=== PATIENT | male | born 1960 | race African-American/Black ===

== ENCOUNTER 2017-03-27 10:37 | Inpatient (IN) | payer OTHER ==
[~2017-03-27] VITALS: Ht 185.4 cm; Wt 90.7 kg
[2017-03-27] MEDS ORDERED: ASPIRIN 81MG TABLET PO STA (11:49)
[2017-03-27] MEDS ORDERED: ONDANSETRON HCL 4MG/2ML VIAL IV STA (11:49)
[2017-03-27 12:35] LABS: BASOPHILS % 0.4 % (0.0-2.0); EOSINOPHILS % 7.5 % (0.0-5.0); HEMATOCRIT. 41.4 % (42.0-52.0); HEMOGLOBIN. 13.4 g/dL (14.0-18.0); LYMPHOCYTES % 10.1 % (20.0-50.0); MEAN CORPUSCULAR HEMOGLOBIN 29.8 pg (28.0-32.0); MEAN CORPUSCULAR VOLUME 92.3 fL (80.0-94.0); MONOCYTES % 4.8 % (2.0-8.0); NEUTROPHILS % 77.2 % (40.0-76.0); PLATELET 195 x1000/uL (130-400); RED BLOOD CELL COUNT 4.48 mill/uL (4.7-6.1); RED CELL DISTRIBUTION WIDTH 16.4 % (11.6-14.6)
[2017-03-27 12:39] LABS: INR 1.2; PARTIAL THROMBOPLASTIN TIME 29.6 sec (23.4-31.0); PROTHROMBIN TIME 12.6 sec (9.4-11.6)
[2017-03-27 12:48] LABS: CARBON DIOXIDE 21 mEq/L (21-32); CHLORIDE 95 mEq/L (98-107); TROPONIN I 0.07 ng/mL (0.00-0.04)
[2017-03-27] MEDS ORDERED: SODIUM CHLORIDE 0.9% 250 ML IV ONE (15:14)
[2017-03-27 16:00] VITALS: BP 134/90
[2017-03-27] MEDS ORDERED: NITROGLYCERIN 0.4MG TABLET SL SL PRN (16:00)
[2017-03-27] MEDS ORDERED: GUAIFENESIN 200MG/10ML SUGAR FREE UDC PO PRN (16:00)
[2017-03-27] MEDS ORDERED: NA PHOS,M-B/NA PHOS,DI-BA ENEMA 118ML PR PRN (16:00)
[2017-03-27] MEDS ORDERED: ONDANSETRON HCL 4MG/2ML VIAL IV PRN (16:00)
[2017-03-27] MEDS ORDERED: ACETAMINOPHEN 325MG TABLET PO PRN (16:00)
[2017-03-27] MEDS ORDERED: DOCUSATE SODIUM 100MG CAPSULE PO PRN (16:00)
[2017-03-27] MEDS ORDERED: DIPHENHYDRAMINE 50MG/ML VIAL IV PRN (16:00)
[2017-03-27] MEDS ORDERED: IPRATROPIUM/ALBUTEROL 0.5-3(2.5)MG/3ML NEB INH PRN (16:00)
[2017-03-27] MEDS ORDERED: LORAZEPAM 2MG/ML CPJ IV PRN (16:00)
[2017-03-27] MEDS ORDERED: TRAMADOL 50MG TABLET PO PRN (16:00)
[2017-03-27] MEDS ORDERED: CLONIDINE 0.1MG TABLET PO PRN (16:00)
[2017-03-27] MEDS ORDERED: MAGNESIUM/ALUMINUM HYDROXIDE/SIMETHICONE 30ML UDC PO PRN (16:00)
[2017-03-27] MEDS ORDERED: SODIUM POLYSTYRENE SULFONATE 15 G/60 ML BOT PO NR (16:30)
[2017-03-27] MEDS ORDERED: ENOXAPARIN 40MG/0.4ML SYR SUBCUT SCH (17:00)
[2017-03-27] MEDS ORDERED: SEVE800T8 PO (17:01)
[2017-03-27] MEDS ORDERED: CYAN10009 PO (17:02)
[2017-03-27 17:10] VITALS: BP 134/90
[2017-03-27] MEDS: SEVELAMER CARBONATE 800 MG TABLET PO SCH (17:39)
[2017-03-27 20:00] VITALS: BP 117/73
[2017-03-27] MEDS: FAMOTIDINE 20MG/2ML VIAL IV SCH (20:31)
[2017-03-27] MEDS: PIPERACILLIN/TAZ 2.25G PREMIX 50 ML IV SCH (20:59)
[2017-03-27] MEDS ORDERED: VANCOMYCIN 1,750 MG in DEXT 5% WATER 250 ML IV NR (21:00)
[2017-03-27] MEDS ORDERED: ZOLPIDEM TARTRATE 5MG TABLET PO PRN (21:00)
[2017-03-27] MEDS ORDERED: ENOXAPARIN 60MG/0.6ML SYR SUBCUT NR (22:45)
[2017-03-28] VITALS (8 sets, daily range): BP systolic 97–191; BP diastolic 56–113
[2017-03-28 01:00] LABS: CREATINE KINASE MB FRACTION 1.7 ng/mL (0.5-3.6); TROPONIN I 0.06 ng/mL (0.00-0.04)
[2017-03-28] MEDS: PIPERACILLIN/TAZ 2.25G PREMIX 50 ML IV SCH ×2 (06:38→14:00)
[2017-03-28 07:44] LABS: CREATINE KINASE MB FRACTION 1.7 ng/mL (0.5-3.6); TROPONIN I 0.06 ng/mL (0.00-0.04)
[2017-03-28] MEDS: SEVELAMER CARBONATE 800 MG TABLET PO SCH ×3 (08:59→18:01)
[2017-03-28] MEDS ORDERED: ASPIRIN 325MG EC TABLET PO SCH (09:00)
[2017-03-28] MEDS ORDERED: FOLIC ACID/VITAMIN B COMP W-C TABLET PO SCH (09:00)
[2017-03-28] MEDS ORDERED: ENOXAPARIN 100MG/ML SYR SUBCUT SCH (17:00)
[2017-03-28] MEDS ORDERED: NITROGLYCERIN 0.2MG/HR PATCH TOP NR (18:00)
[2017-03-28] MEDS ORDERED: VANCOMYCIN 1 G PREMIX 200 ML IV NR (18:00)
[2017-03-28] MEDS: FAMOTIDINE 20MG/2ML VIAL IV SCH (21:39)
== END 2017-03-28 22:45 | disposition short-term general hospital (02) | DRG 871 ==
LOC: ER 10:45 → 8WST 11:52 → EDBEDREQ 15:08 → ENRESERV 15:29
PROVIDERS: ADMIT Internal Medicine; ATTEND Internal Medicine
DX: A41.9 Sepsis, unspecified organism (principal); K85.90 Acute pancreatitis without necrosis or infection, unspecified; I26.99 Other pulmonary embolism without acute cor pulmonale; N18.6 End stage renal disease; I95.9 Hypotension, unspecified; I82.413 Acute embolism and thrombosis of femoral vein, bilateral; E87.1 Hypo-osmolality and hyponatremia; E87.5 Hyperkalemia; I12.0 Hypertensive chronic kidney disease with stage 5 chronic kidney disease or end stage renal disease; D63.8 Anemia in other chronic diseases classified elsewhere; E66.9 Obesity, unspecified; Z79.82 Long term (current) use of aspirin; Z82.49 Family history of ischemic heart disease and other diseases of the circulatory system; Z99.2 Dependence on renal dialysis; Z91.041 Radiographic dye allergy status; Z68.26 Body mass index [BMI] 26.0-26.9, adult
CPT/HCPCS: 36415; 71010; 78582; 80053; 80061; 80202; 82550; 82553; 83036; 83605; 83690; 83880; 84484; 85025; 85610; 85730; 87040; 93005; 93306; 93970; 96361; 96374; 99285; A9558; J1650; J2405; J2543; J3370; J3490; J7030; J7050; J7060

== ENCOUNTER 2018-07-05 21:20 | Inpatient (IN) | payer MEDICARE, OTHER ==
[~2018-07-05] VITALS: Ht 188 cm; Wt 134.3 kg
[2018-07-05] MEDS ORDERED: SODIUM CHLORIDE 0.9% 1000ML BAG (SEPSIS BOLUS) IV ONE ×2 (22:00→23:15)
[2018-07-05 22:41] LABS: BASOPHILS % 0.6 % (0.0-2.0); EOSINOPHILS % 0.1 % (0.0-5.0); HEMATOCRIT. 36.6 % (42.0-52.0); HEMOGLOBIN. 11.7 g/dL (14.0-18.0); LYMPHOCYTES % 19.9 % (20.0-50.0); MEAN CORPUSCULAR HEMOGLOBIN 32.7 pg (28.0-32.0); MEAN CORPUSCULAR VOLUME 101.9 fL (80.0-94.0); MEAN PLATELET VOLUME 8.6 fl (7.4-10.4); MONOCYTES % 14.8 % (2.0-8.0); NEUTROPHILS % 64.6 % (40.0-76.0); PLATELET 117 x1000/uL (130-400); RED BLOOD CELL COUNT 3.59 mill/uL (4.7-6.1); RED CELL DISTRIBUTION WIDTH 17.8 % (11.6-14.6)
[2018-07-05 22:48] LABS: CHLORIDE 103 mEq/L (98-107)
[2018-07-05 22:49] LABS: INR 1.6; PROTHROMBIN TIME 16.3 sec (9.1-11.1)
[2018-07-05] MEDS ORDERED: ACETAMINOPHEN 325MG TABLET PO STA (23:06)
[2018-07-05] MEDS ORDERED: PIPERACILLIN/TAZ 3.375G PREMIX 50 ML IV ONE (23:15)
[2018-07-05] MEDS ORDERED: VANCOMYCIN 1 G PREMIX 200 ML IV ONE (23:15)
[2018-07-06] VITALS (11 sets, daily range): BP systolic 92–131; BP diastolic 41–76
[2018-07-06] MEDS ORDERED: DILTIAZEM HCL 5MG/ML 5ML VIAL IV ONE
[2018-07-06] MEDS ORDERED: VITA-137 MT (04:54)
[2018-07-06] MEDS ORDERED: ZOLPIDEM TARTRATE 5MG TABLET PO PRN (05:45)
[2018-07-06] MEDS ORDERED: VANCOMYCIN 1 G PREMIX 200 ML IV SCH (07:00)
[2018-07-06] MEDS ORDERED: DIPHENHYDRAMINE 50MG/ML VIAL IV PRN (07:00)
[2018-07-06] MEDS ORDERED: HYDRALAZINE 20MG/ML VIAL IV PRN (07:00)
[2018-07-06] MEDS ORDERED: ONDANSETRON HCL 4MG/2ML INJ IV PRN (07:00)
[2018-07-06] MEDS ORDERED: DOCUSATE SODIUM 100MG CAPSULE PO PRN (07:00)
[2018-07-06] MEDS ORDERED: GUAIFENESIN 200MG/10ML SUGAR FREE UDC PO PRN (07:00)
[2018-07-06] MEDS ORDERED: PIPERACILLIN/TAZ 3.375G PREMIX 50 ML IV SCH (07:00)
[2018-07-06] MEDS ORDERED: ACETAMINOPHEN 325MG TABLET PO PRN (07:00)
[2018-07-06] MEDS ORDERED: LORAZEPAM 2MG/ML CPJ IV PRN (07:00)
[2018-07-06] MEDS ORDERED: CLONIDINE 0.1MG TABLET PO PRN (07:00)
[2018-07-06] MEDS ORDERED: MAGNESIUM/ALUMINUM HYDROXIDE/SIMETHICONE 30ML UDC PO PRN (07:00)
[2018-07-06] MEDS ORDERED: IPRATROPIUM/ALBUTEROL 0.5-3(2.5)MG/3ML NEB INH PRN (07:00)
[2018-07-06] MEDS ORDERED: HYDROMORPHONE HCL/PF 2MG/ML CPJ IV PRN (07:00)
[2018-07-06] MEDS: ENOXAPARIN 40MG/0.4ML SYR SUBCUT SCH ×2 (08:00→09:19)
[2018-07-06] MEDS: ASPIRIN 81MG EC TABLET PO SCH (09:19)
[2018-07-06] MEDS: PIPERACILLIN/TAZ 2.25G PREMIX 50 ML IV SCH ×2 (09:30→17:39)
[2018-07-06 10:21] LABS: BASOPHILS % 0.4 % (0.0-2.0); EOSINOPHILS % 0.5 % (0.0-5.0); HEMATOCRIT. 28.8 % (42.0-52.0); HEMOGLOBIN. 9.3 g/dL (14.0-18.0); LYMPHOCYTES % 23.5 % (20.0-50.0); MEAN PLATELET VOLUME 8.2 fl (7.4-10.4); MONOCYTES % 12.1 % (2.0-8.0); NEUTROPHILS % 63.5 % (40.0-76.0); PLATELET 111 x1000/uL (130-400); RED BLOOD CELL COUNT 2.82 mill/uL (4.7-6.1)
[2018-07-06] MEDS: SODIUM CHLORIDE 0.9% INJ 3ML FLUSH IVF SCH ×2 (14:48→22:45)
[2018-07-06 15:57] LABS: CREATINE KINASE MB FRACTION 13.7 ng/mL (0.5-3.6)
[2018-07-06] MEDS ORDERED: CLOPIDOGREL 75MG TABLET PO NR (16:45)
[2018-07-06] MEDS ORDERED: ENOXAPARIN 100MG/ML SYR SUBCUT NR (17:30)
[2018-07-06] MEDS: ENOXAPARIN 150MG/ML SYR SUBCUT SCH (17:41)
[2018-07-06] MEDS ORDERED: VANCOMYCIN 2,000 MG in DEXT 5% WATER 500 ML IV NR (18:00)
[2018-07-06 23:55] LABS: CREATINE KINASE MB FRACTION 7.6 ng/mL (0.5-3.6)
[2018-07-07] VITALS (12 sets, daily range): BP systolic 90–121; BP diastolic 46–76
[2018-07-07] MEDS: IPRATROPIUM/ALBUTEROL 0.5-3(2.5)MG/3ML NEB HHN SCH ×4 (02:45→20:14)
[2018-07-07] MEDS: PIPERACILLIN/TAZ 2.25G PREMIX 50 ML IV SCH ×3 (03:35→17:34)
[2018-07-07] MEDS: SODIUM CHLORIDE 0.9% INJ 3ML FLUSH IVF SCH ×2 (05:39→13:22)
[2018-07-07 06:34] LABS: HEMATOCRIT. 27.7 % (42.0-52.0); HEMOGLOBIN. 8.7 g/dL (14.0-18.0); MEAN CORPUSCULAR HEMOGLOBIN 32.8 pg (28.0-32.0); MEAN CORPUSCULAR VOLUME 104.2 fL (80.0-94.0); MEAN PLATELET VOLUME 8.2 fl (7.4-10.4); PLATELET 126 x1000/uL (130-400); RED BLOOD CELL COUNT 2.65 mill/uL (4.7-6.1); RED CELL DISTRIBUTION WIDTH 18.5 % (11.6-14.6)
[2018-07-07 07:11] LABS: CHLORIDE 106 mEq/L (98-107)
[2018-07-07 07:43] LABS: T4 FREE 1.24 ng/dL (0.76-1.46)
[2018-07-07] MEDS: BUDESONIDE 0.5MG/2ML NEB HHN SCH (08:43)
[2018-07-07] MEDS: ASPIRIN 81MG EC TABLET PO SCH (09:23)
[2018-07-07 10:52] LABS: PLATELET ESTIMATE SLIGHTLY DECREASED
[2018-07-07] MEDS: HYDROCODONE/ACETAMINOPHEN 10/325MG TABLET PO PRN ×2 (12:19→17:46)
[2018-07-07] MEDS: ENOXAPARIN 150MG/ML SYR SUBCUT SCH (17:35)
[2018-07-08] VITALS (13 sets, daily range): BP systolic 86–106; BP diastolic 45–71
[2018-07-08] MEDS: IPRATROPIUM/ALBUTEROL 0.5-3(2.5)MG/3ML NEB HHN SCH ×3 (00:13→16:20)
[2018-07-08] MEDS: BUDESONIDE 0.5MG/2ML NEB HHN SCH ×2 (00:13→16:20)
[2018-07-08] MEDS: PIPERACILLIN/TAZ 2.25G PREMIX 50 ML IV SCH ×3 (01:16→17:23)
[2018-07-08] MEDS: SODIUM CHLORIDE 0.9% INJ 3ML FLUSH IVF SCH ×3 (01:17→15:26)
[2018-07-08] MEDS: ASPIRIN 81MG EC TABLET PO SCH (08:57)
[2018-07-08] MEDS: ENOXAPARIN 150MG/ML SYR SUBCUT SCH (17:23)
== END 2018-07-08 22:00 | disposition short-term general hospital (02) | DRG 280 ==
LOC: ER 21:20 → 5EST 23:50 → EDBEDREQTM 23:52 → EDBEDREQ 23:52 → EDBEDREQSVC 23:52 → ENRESERV 07-06 00:37 → 5EST 07-06 14:33
PROVIDERS: ADMIT Internal Medicine; ATTEND Internal Medicine
PROC: 5A1D70Z Performance of Urinary Filtration, Intermittent, Less than 6 Hours Per Day (ICD-10-PCS; 2018-07-06)
PROC: 5A1D70Z Performance of Urinary Filtration, Intermittent, Less than 6 Hours Per Day (ICD-10-PCS; principal; 2018-07-08)
DX: T80.211A Bloodstream infection due to central venous catheter, initial encounter (principal); A41.9 Sepsis, unspecified organism; I21.4 Non-ST elevation (NSTEMI) myocardial infarction; J69.0 Pneumonitis due to inhalation of food and vomit; J96.00 Acute respiratory failure, unspecified whether with hypoxia or hypercapnia; N18.6 End stage renal disease; G93.41 Metabolic encephalopathy; R65.20 Severe sepsis without septic shock; D68.59 Other primary thrombophilia; E87.2 Acidosis; I13.2 Hypertensive heart and chronic kidney disease with heart failure and with stage 5 chronic kidney disease, or end stage renal disease; J44.0 Chronic obstructive pulmonary disease with (acute) lower respiratory infection; E46 Unspecified protein-calorie malnutrition; I82.411 Acute embolism and thrombosis of right femoral vein; D64.9 Anemia, unspecified; E11.22 Type 2 diabetes mellitus with diabetic chronic kidney disease; I25.10 Atherosclerotic heart disease of native coronary artery without angina pectoris; I50.9 Heart failure, unspecified; J20.9 Acute bronchitis, unspecified; Y84.8 Other medical procedures as the cause of abnormal reaction of the patient, or of later complication, without mention of misadventure at the time of the procedure; Z86.711 Personal history of pulmonary embolism; Z99.2 Dependence on renal dialysis; Z68.38 Body mass index [BMI] 38.0-38.9, adult
CPT/HCPCS: 36415; 71045; 78582; 80048; 80061; 80202; 82550; 82553; 83036; 83605; 83880; 84145; 84439; 84443; 84484; 85379; 87045; 87449; 87493; 89055; 93005; 93306; 94640; 96365; 96375; 99291; A9558; J1650; J2543; J3370; J3490; J7030; J7040; J7050; J7060; J7620; J7626

== ENCOUNTER 2018-10-31 13:16 | Emergency (ER) | payer OTHER, MEDICARE ==
[~2018-10-31] VITALS: Ht 188 cm; Wt 120.0 kg
[~2018-10-31 13:16] MED LIST: VITA-137 MT
[2018-10-31] MEDS ORDERED: DILTIAZEM HCL 5MG/ML 5ML VIAL IV ONE ×3 (14:47→16:15)
[2018-10-31] MEDS ORDERED: DILTIAZEM HCL 90MG TABLET PO ONE (15:15)
[2018-10-31] MEDS ORDERED: ASPIRIN 325MG EC TABLET PO ONE (15:15)
[2018-10-31 15:25] LABS: BASOPHILS % 1.3 % (0.0-2.0); EOSINOPHILS % 5.7 % (0.0-5.0); HEMATOCRIT. 38.7 % (42.0-52.0); HEMOGLOBIN. 12.6 g/dL (14.0-18.0); LYMPHOCYTES % 19.9 % (20.0-50.0); MEAN CORPUSCULAR HEMOGLOBIN 30.5 pg (28.0-32.0); MEAN PLATELET VOLUME 7.4 fl (7.4-10.4); MONOCYTES % 7.3 % (2.0-8.0); NEUTROPHILS % 65.8 % (40.0-76.0); PLATELET 129 x1000/uL (130-400); RED BLOOD CELL COUNT 4.12 mill/uL (4.7-6.1); RED CELL DISTRIBUTION WIDTH 16.3 % (11.6-14.6)
[2018-10-31 15:27] LABS: CHLORIDE 104 mEq/L (98-107)
[2018-10-31 15:30] LABS: INR 1.2; PARTIAL THROMBOPLASTIN TIME 31.2 sec (23.4-31.0)
[2018-10-31] MEDS ORDERED: HEPARIN 25,000 UNITS PREMIX 500 ML IV ONE (16:15)
[2018-10-31] MEDS ORDERED: HEPARIN 5000 UNITS/ML VIAL IV ONE (16:15)
[2018-10-31 20:52] VITALS: BP 99/61
== END 2018-10-31 21:40 | disposition short-term general hospital (02) ==
LOC: ER 13:16 → CANBEDREQ 18:42 → ER 21:40
DX: I48.2 Chronic atrial fibrillation (principal); I13.2 Hypertensive heart and chronic kidney disease with heart failure and with stage 5 chronic kidney disease, or end stage renal disease; N18.6 End stage renal disease; I50.9 Heart failure, unspecified; R79.89 Other specified abnormal findings of blood chemistry; I25.2 Old myocardial infarction; Z99.2 Dependence on renal dialysis; Z98.890 Other specified postprocedural states; Z79.899 Other long term (current) drug therapy
CPT/HCPCS: 36415; 71045; 80053; 83880; 84484; 85025; 85610; 85730; 93005; 96365; 96375; 96376; 99285; J1644; J3490; Z7610